=== PATIENT | female | born 1940 | race Caucasian/White ===

== ENCOUNTER 2018-07-07 01:46 | Emergency (ER) | payer MEDICARE ==
[~2018-07-07] VITALS: Ht 160 cm; Wt 83.0 kg
[~2018-07-07 01:46] MED LIST: CIPR500T87 PO; FURO-93 PO; GABA-826 PO; HYDR25TA6 PO; LOSA25TA25 PO; LOSA50TA2 PO; METF500T17 PO; PIOG15TA66 PO; PROP80TA PO
--- NOTE | 2018-07-07 01:50 | NUR ---
assessment made. ERP at bedside.
[2018-07-07] MEDS ORDERED: LIDOCAINE 1%, 10ML INFIL ONE (02:00)
[2018-07-07] MEDS ORDERED: LIDOCAINE-MPF 1%, 5ML ONE (02:14)
[2018-07-07 02:19] LABS: BASOPHILS # (AUTO) 0.04 x10^3/uL (0-0.1); BASOPHILS % (AUTO) 0 % (0-1); EOSINOPHILS # (AUTO) 0.31 x10^3/uL (0-0.4); EOSINOPHILS % (AUTO) 3 % (1-7); LYMPHOCYTES # (AUTO) 1.56 x10^3/uL (1-3.4); LYMPHOCYTES % (AUTO) 16 % (22-44); MD NO; MEAN CORPUSCULAR HGB CONC 32.9 g/dL (32.4-35.8); MEAN CORPUSCULAR VOLUME 94.2 fL (80-100); MEAN PLATELET VOLUME 8.2 fL (7.4-10.4); MONOCYTES # (AUTO) 0.87 x10^3/uL (0.2-0.8); MONOCYTES % (AUTO) 9 % (2-9); NEUTROPHILS # (AUTO) 6.92 x10^3/uL (1.8-6.8); NEUTROPHILS % (AUTO) 71 % (42-75); PLATELET COUNT 271 x10^3/uL (130-400); RED CELL DISTRIBUTION WIDTH 13.9 % (9.6-15.2)
[2018-07-07 02:28] LABS: INTERNATIONAL NORMALIZED RATIO 1.03 (0.93-1.1); PROTHROMBIN TIME 10.9 Seconds (9.6-11.5)
[2018-07-07 02:31] LABS: ALANINE AMINOTRANSFERASE 10 U/L (12-78); ALBUMIN 2.6 g/dL (3.4-5.0); ANION GAP 4 mmol/L (5-15); CHLORIDE 102 mmol/L (98-107)
[2018-07-07 02:34] LABS: ALKALINE PHOSPHATASE 46 U/L (45-117); BILIRUBIN,TOTAL 0.6 mg/dL (0.2-1.0); TOTAL PROTEIN 6.6 g/dL (6.4-8.2)
--- NOTE | 2018-07-07 02:41 | NUR ---
BREAK RN: CONSENT SIGNED, PT DENIES QUESTIONS/CONCERNS. CONSENT ON CHART
--- NOTE | 2018-07-07 03:23 | NUR ---
ERP at bedside for paracentesis.
--- NOTE | 2018-07-07 03:48 | NUR ---
paracentesis done. obtained 2.8 liters output.
[2018-07-07 05:06] LABS: CELLS COUNTED 393
[2018-07-07 06:16] VITALS: BP 116/68
--- NOTE | 2018-07-07 06:16 | NUR ---
re-evaluation done. patient discharged with instruction. verbalized understanding.
== END 2018-07-07 06:21 | disposition home or self-care (01) ==
LOC: ED 04:50
DX: R18.8 Other ascites (principal); I10 Essential (primary) hypertension; R60.0 Localized edema
CPT/HCPCS: 36415; 49083; 71045; 80053; 82042; 82945; 83615; 83986; 85025; 85610; 87070; 87205; 89051; 93005; 99285; J3490

== ENCOUNTER 2018-07-12 10:11 | Emergency (ER) | payer MEDICARE ==
[~2018-07-12] VITALS: Ht 160 cm; Wt 84.0 kg
--- NOTE | 2018-07-12 10:54 | NUR ---
PT ON BP CUFF, PULSE OX. PULSE OX READING 90%, PT WITH RAPID RESP RATE. OXYGEN PLACED AT 2LITERS VIA NC. 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 FAMILY AT BS, CALL LIGHT WITHIN REACH.
[2018-07-12 11:17] LABS: BASOPHILS % (AUTO) 0 % (0-1); EOSINOPHILS # (AUTO) 0.21 x10^3/uL (0-0.4); EOSINOPHILS % (AUTO) 4 % (1-7); LYMPHOCYTES # (AUTO) 0.54 x10^3/uL (1-3.4); LYMPHOCYTES % (AUTO) 11 % (22-44); MD NO; MEAN CORPUSCULAR HEMOGLOBIN 31.5 pg (27.0-34.8); MEAN CORPUSCULAR HGB CONC 33.9 g/dL (32.4-35.8); MEAN PLATELET VOLUME 9.4 fL (7.4-10.4); MONOCYTES # (AUTO) 0.02 x10^3/uL (0.2-0.8); MONOCYTES % (AUTO) 1 % (2-9); NEUTROPHILS # (AUTO) 4.35 x10^3/uL (1.8-6.8); NEUTROPHILS % (AUTO) 85 % (42-75); PLATELET COUNT 181 x10^3/uL (130-400); RED BLOOD COUNT 4.52 x10^6/uL (3.82-5.3); RED CELL DISTRIBUTION WIDTH 13.4 % (9.6-15.2)
[2018-07-12 11:24] LABS: ALBUMIN 2.4 g/dL (3.4-5.0); ANION GAP 9 mmol/L (5-15); CALCIUM 8.6 mg/dL (8.5-10.1); CHLORIDE 103 mmol/L (98-107)
[2018-07-12 11:28] LABS: ALANINE AMINOTRANSFERASE 12 U/L (12-78); ALKALINE PHOSPHATASE 44 U/L (45-117); BILIRUBIN,TOTAL 0.9 mg/dL (0.2-1.0); CREATININE 1.34 mg/dL (0.55-1.02); TOTAL PROTEIN 6.1 g/dL (6.4-8.2)
--- NOTE | 2018-07-12 11:29 | NUR ---
PT ASSISTED TO BR WITH WC. CONSENT FOR PARACENTESIS AT BS. PT UPDATED ON POC, NPO ORDER. CALL LIGHT WITHIN REACH. VSS.
[2018-07-12] MEDS ORDERED: LIDOCAINE-MPF 1%, 5ML ONE (11:44)
--- NOTE | 2018-07-12 13:00 | NUR ---
CALL TO US TO INQUIRE ON TIME FOR THORACENTESIS. US UNABLE TO GIVEN ESTIMATED TIME, PT AND FAMILY UPDATED.
--- NOTE | 2018-07-12 14:13 | NUR ---
CALL BACK TO US TO INQUIRE ON ESTIMATED TIME FOR THORACENTESIS. UNKNOWN ON AVAILABILITY OF DR KUMAR TO PERFORM PROCEDURE AT THIS TIME. US WILL CALL BACK TO UPDATE WHEN ABLE.
--- NOTE | 2018-07-12 14:29 | NUR ---
PT TO US FOR IR.
--- NOTE | 2018-07-12 15:08 | NUR ---
PT BACK FROM IR, "FEELING BETTER". PT FOR RECHECK.
[2018-07-12 15:19] VITALS: BP 128/84
== END 2018-07-12 15:21 | disposition home or self-care (01) ==
LOC: ED 11:14
DX: J90 Pleural effusion, not elsewhere classified (principal); E11.65 Type 2 diabetes mellitus with hyperglycemia; C79.60 Secondary malignant neoplasm of unspecified ovary; C78.02 Secondary malignant neoplasm of left lung; I10 Essential (primary) hypertension; E11.9 Type 2 diabetes mellitus without complications
CPT/HCPCS: 32555; 36415; 71045; 80053; 85025; 88112; 88305; 93005; 99285

== ENCOUNTER 2018-07-17 05:03 | Emergency (ER) | payer MEDICARE ==
[~2018-07-17] VITALS: Ht 160 cm; Wt 81.0 kg
[2018-07-17] MEDS ORDERED: LORazepam 2 MG/ML, 1ML ONE (05:57)
[2018-07-17] MEDS ORDERED: LORazepam 2 MG/ML, 1ML IVP ONE (06:00)
[2018-07-17] MEDS ORDERED: SODIUM CHLORIDE FLUSH 10ML SYR IVF ONE (06:00)
--- NOTE | 2018-07-17 06:00 | NUR ---
PT PLACED ON A MONITOR AND IN A GOWN. PT WITH DAUGHTER AT BEDSIDE AND IN RESP DISTRESS. IV STARTED AND BLOOD TO LAB. X-RAY DONE AND AWAITING TEST RESULTS.
--- NOTE | 2018-07-17 06:33 | NUR ---
PT GIVEN A WARM BLANKET AND LIGHTS OUT FOR SOME REST. DAUGHTER GIVEN AN UPDATE ON WHAT TO EXPECT.
[2018-07-17 06:34] LABS: ALANINE AMINOTRANSFERASE 18 U/L (12-78); ALBUMIN 2.4 g/dL (3.4-5.0); ANION GAP 10 mmol/L (5-15); CALCIUM 8.7 mg/dL (8.5-10.1); CHLORIDE 97 mmol/L (98-107); CREATININE 1.29 mg/dL (0.55-1.02)
[2018-07-17 06:39] LABS: ALKALINE PHOSPHATASE 60 U/L (45-117); BILIRUBIN,TOTAL 0.7 mg/dL (0.2-1.0); TOTAL PROTEIN 6.9 g/dL (6.4-8.2); TROPONIN I 0.083 ng/mL (0.000-0.045)
[2018-07-17 06:56] LABS: MEAN CORPUSCULAR HEMOGLOBIN 31.3 pg (27.0-34.8); MEAN CORPUSCULAR HGB CONC 33.7 g/dL (32.4-35.8); MEAN CORPUSCULAR VOLUME 92.7 fL (80-100); MEAN PLATELET VOLUME 9.7 fL (7.4-10.4); PLATELET COUNT 172 x10^3/uL (130-400); RED BLOOD COUNT 4.75 x10^6/uL (3.82-5.3); RED CELL DISTRIBUTION WIDTH 13.8 % (9.6-15.2)
[2018-07-17 06:57] LABS: MD YES
[2018-07-17] MEDS ORDERED: SODIUM CHLORIDE 0.9% 1,000ML IVBOLUS ONE ×2 (07:00→09:00)
[2018-07-17] MEDS ORDERED: ASPIRIN 81 MG TABLET CHEW PO ONE (07:00)
[2018-07-17] MEDS ORDERED: ASPIRIN 81 MG TABLET CHEW ONE (07:08)
--- NOTE | 2018-07-17 07:19 | NUR ---
SBAR HAND-OFF REPORT RECEIVED FROM BRITTANY PRINGLE. ASSUMED CARE OF PATIENT. PATIENT SLEEPING. DAUGHTER AT BEDSIDE. ASPIRIN GIVEN ORDERED. VS STABLE.
[2018-07-17 07:24] LABS: RAPID INFLUENZA A Negative (Negative); RAPID INFLUENZA B Negative (Negative)
[2018-07-17 07:37] LABS: REACTIVE LYMPHS # (MANUAL) 0.04 x10^3/uL (0-0); REACTIVE LYMPHS % (MANUAL) 2 % (0-0)
[2018-07-17 07:39] LABS: BASOS#(MANUAL) 0.04 x10^3/uL (0-0.1); BASOS% (MANUAL) 2 % (0-1); EOS#(MANUAL) 0.11 x10^3/uL (0.0-0.4); EOS% (MANUAL) 5 % (1-7); LYMPH#(MANUAL) 1.28 x10^3/uL (1-3.4); LYMPHS% (MANUAL) 58 % (22-44); MONOS#(MANUAL) 0.53 x10^3/uL (0.3-2.7); MONOS% (MANUAL) 24 % (2-9); MYELOCYTES# (MANUAL) 0.02 x10^3/uL (0-0); MYELOCYTES% (MANUAL) 1 % (0-0); SEG#(MANUAL) 0.18 x10^3/uL (1.8-6.8); SEGS% (MANUAL) 8 % (42-75)
[2018-07-17 07:40] LABS: <PLATELET ESTIMATE> ADEQUATE; LARGE PLATELETS 1+; POLYCHROMASIA 1+
--- NOTE | 2018-07-17 07:54 | NUR ---
patient report taken from chelsea sherwood. patient in bed, rails up. sleepy but oriented x4. patient daughter at bedside. patient moved to room 24 and now is going ct scan.
[2018-07-17] MEDS ORDERED: OMNIPAQUE 350 MG/ML, 100ML BOTTLE ONE (08:09)
--- NOTE | 2018-07-17 08:12 | NUR ---
patient back from ct
--- NOTE | 2018-07-17 08:16 | NUR ---
awaiting admission. patient in bed rails up.
--- NOTE | 2018-07-17 08:50 | NUR ---
let md know patient hypotensive and got order NS bolus. aox4
--- NOTE | 2018-07-17 08:54 | NUR ---
patient getting lab tests then will start heparain gtt
[2018-07-17] MEDS ORDERED: SODIUM CHLORIDE 0.9% 1,000 ML IV ONE ×2 (08:56→09:09)
[2018-07-17] MEDS ORDERED: PIPERACILLIN/TAZO/PMX 3.375GM 50 ML IV ONE (09:00)
[2018-07-17] MEDS ORDERED: TBO-FILGRASTIM 300 MCG/0.5 ML SQ ONE (09:00)
[2018-07-17] MEDS ORDERED: PLEASE ENTER WEIGHT MC SCH (09:00)
--- NOTE | 2018-07-17 09:00 | NUR ---
TASK RN: MEDICATION REQUEST SENT TO PHARMACY.
[2018-07-17] MEDS ORDERED: HEPARIN 25,000 UNITS/500ML PMX 500 ML ONE (09:09)
--- NOTE | 2018-07-17 09:15 | NUR ---
was in room to give patients nuepogen i got from pharmacy. mom at bedside. patient talkative and watching TV. vss. getting fluids. then suddently patient began gasping and she became less responsive. HR was still nsr 60's on monitor. ran to get Fabian RAE to help asseess. when him and I quickly no delay returned to room patient was janina to 30's. she was not responding. called a code and got crash cart and began compressions.
[2018-07-17 09:16] LABS: INTERNATIONAL NORMALIZED RATIO 1.08 (0.93-1.1); PROTHROMBIN TIME 11.4 Seconds (9.6-11.5)
[2018-07-17] MEDS ORDERED: PIPERACILLIN/TAZO/PMX 3.375GM 50 ML ONE (09:22)
[2018-07-17] MEDS ORDERED: SODIUM CHLORIDE FLUSH 10ML SYR IVF PRN (09:30)
--- NOTE | 2018-07-17 09:30 | NUR ---
code was called promptly after patient's status change. team responded and MD Fabian ran code. patients daughter at bedside. see code sheet for all medications given, compressions, ventilations and airway management.
[2018-07-17] MEDS ORDERED: ALTEPLASE 1 MG/ML ONE (09:37)
[2018-07-17 09:56] VITALS: BP 135/94
[2018-07-17] MEDS ORDERED: SUCCINYLCHOLINE 20 MG/ML, 10ML IVPush ONE (10:00)
[2018-07-17] MEDS ORDERED: ALTEPLASE 100 MG in BAG 1 EACH IV ONE (10:00)
[2018-07-17] MEDS ORDERED: EPINEPHRINE 1 MG/ML, 1ML IVPush ONE (10:00)
[2018-07-17] MEDS ORDERED: ETOMIDATE 20 MG/10 ML IVPush ONE (10:00)
--- NOTE | 2018-07-17 10:02 | NUR ---
ASSUMED CARE OF PATIENT/FAMILY AT THIS TIME. CHAIR AND TISSUE PROVIDED TO DAUGHTER.
--- NOTE | 2018-07-17 10:02 | NUR ---
patient time of 10:02. daughter at bedside. patient was changed during code to dnr and patient was allowed to pass. Peralta confirmed .
--- NOTE | 2018-07-17 11:05 | NUR ---
[facility] REPORTED PATIENT'S .
[2018-07-17] MEDS ORDERED: ETOMIDATE 40 MG/20 ML ONE (11:30)
[2018-07-17] MEDS ORDERED: EPINEPHRINE SYRINGE 0.1 MG/ML, 10ML ONE (11:30)
[2018-07-17] MEDS ORDERED: SUCCINYLCHOLINE 20 MG/ML, 10ML ONE (11:30)
--- NOTE | 2018-07-17 12:02 | NUR ---
PATIENT'S BODY PUT INTO BODY BAG WITH ID ON R GREAT TOE AND ON BAG AND TAKEN TO THE [place].
== END 2018-07-17 12:00 | disposition expired ==
LOC: ED 05:26 → EDIP 09:09 → UNDOADMIN 09:09 → ED 12:00
DX: I46.9 Cardiac arrest, cause unspecified (principal); I26.09 Other pulmonary embolism with acute cor pulmonale; I95.9 Hypotension, unspecified; J96.00 Acute respiratory failure, unspecified whether with hypoxia or hypercapnia; C79.60 Secondary malignant neoplasm of unspecified ovary; C48.2 Malignant neoplasm of peritoneum, unspecified; I10 Essential (primary) hypertension; E11.9 Type 2 diabetes mellitus without complications
CPT/HCPCS: 31500; 36415; 71045; 71275; 80053; 83605; 83880; 84145; 84484; 85025; 85520; 85610; 85730; 87040; 87400; 92950; 93005; 96361; 96365; 96372; 96375; 99291; J0330; J1447; J2060; J2543; J7030; Q9967